=== PATIENT | female | born 1990 | race Caucasian/White ===

== ENCOUNTER 2023-11-17 19:46 | Emergency (ER) | payer OTHER, SELFPAY ==
[2023-11-17 19:48] VITALS: BP 143/83
[2023-11-17 20:13] VITALS: BMI 25.9
[2023-11-17 20:32] LABS: % Basophils 0.8 % (0-2); % Immature Granulocytes 0.5 % (0-0.5); % Monocytes 10.2 % (1.7-9.3); % Neutrophils 44.5 % (42.2-75.2); Absolute Basophils 0.1 10^3/uL (0-0.2); Absolute Eosinophils 0.2 10^3/uL (0-0.7); Absolute Lymphocytes 2.7 10^3/uL (1.2-3.4); Absolute Monocytes 0.7 10^3/uL (0.1-0.6); Absolute Neutrophils 2.9 10^3/uL (1.4-6.5); Hematocrit 35.9 % (37.0-47.0); Mean Corp Hgb Conc. 33.4 g/dL (33.0-37.0); Mean Corpuscular Hgb 30.2 pg (27.0-31.0); Mean Corpuscular Volume 90.4 fL (81.0-99.0); Mean Platelet Volume 9.2 fL (7.4-10.4); Nucleated Red Blood Cells % 0 %; Platelet Count 264 10^3/uL (130-400); Red Blood Cell Count 3.97 10^6/uL (4.20-5.40); Red Cell Dist. Width 12.3 % (11.5-14.5); White Blood Cell Count 6.6 10^3/uL (4.8-10.8)
[2023-11-17 20:50] LABS: ALT (SGPT) 22 U/L (0-35); AST (SGOT) 24 U/L (14-36); Albumin 4.6 g/dl (3.5-5.0); Alkaline Phosphatase 75 U/L (38-126); Blood Urea Nitrogen 5 mg/dl (7-17); Calcium 9.6 mg/dl (8.4-10.2); Carbon Dioxide 23 mmol/L (22-30); Chloride 104 mmol/L (98-107); Estimated Creatinine Clearance > 125 ml/min; Glucose 90 mg/dl (70-99); Potassium 3.4 mmol/L (3.5-5.1); Sodium 137 mmol/L (135-145); Total Bilirubin 0.8 mg/dl (0.2-1.3); Total Protein 7.2 g/dl (6.3-8.2); eGFR > 60.00
--- NOTE | 2023-11-17 20:55 | ED.GENMED ---
History of Present Illness
General
Chief Complaint: Breast Problem
Source: patient
Exam Limitations: none
Time Seen by Provider: 11/17/23 20:26
Nursing documentation reviewed up to this point in time: agreed with
Travel History
Have you had any contact with someone who has COVID-19?: No
Do you have any symptoms of coronavirus? Fever > 100 degrees, chills, cough, shortness of breath, sore throat, loss of taste or smell, muscle aches, or headache?: No
History of Present Illness
History of Present Illness:
The patient is a pleasant 33-year-old female who underwent a bilateral mastectomy (for increased risk of breast cancer) this past July. Patient reports that she then had expanders placed in her breast. The patient had the expanders removed and
implants placed almost 3 weeks ago. Patient reports she has been feeling well until today at around 11:00 AM, she had sudden onset of severe pain starting in her right breast and spreading across to her left breast area. Pain described it as a
severe cramping sensation felt inside her chest. Patient reports she is unable to make it hurt with movement or taking a deep breath. Patient surgery done was done at [facility]
Past History
Past History
ED Past Medical History: Asthma, Seizures and Other (eczema)
ED Past Surgical History: Other (wisdom teeth extraction, bilateral mastectomy with implants)
Social History
Tobacco: Former smoker
Alcohol: Daily
Drug: Marijuana
Personal: Single
Living: with family
Employment: Employed
Family History
Family History: Asthma
Review of Systems
Review of Systems
Allergies reviewed?: Yes
All Other Systems: ROS reviewed and negative except as documented in HPI and ROS
Constitutional: Reports no symptoms
EENT: Reports no symptoms
Respiratory: Reports no symptoms
Cardiac: Reports chest pain
ABD/GI: Reports no symptoms
: Reports no symptoms
Musculoskeletal: Reports no symptoms
Skin: Reports no symptoms
Neurological: Reports no symptoms
Endocrine: Reports no symptoms
Hematologic/Lymphatic: Reports no symptoms
Psychiatric: Reports no symptoms
Phy Exam
Physical Exam
Physical Exam:
Physical Exam
General: no apparent distress, not acutely ill. Well appearing
Neck: supple.
Heart: s1/s2 regular rate and rhythm, no murmur. equal radial pulses.
Lungs: no acute respiratory distress. clear bilaterally. No reproducible chest pain when taking a deep breath. Breast implants look well-positioned, bilateral incisions appear dry, intact without erythema or drainage.
No soft tissue tenderness of chest wall or breast
Abdomen: normal bowel sounds. not tender. no CVAT
Neuro: alert and oriented. no focal neurological deficits
Skin: no rash
Psychiatric: well kept. interactive and cooperative
Extremities: no edema. no calf tenderness. negative homans. good distal pulses
Course
Orders/Labs/Results
Orders:
Orders
11/17/23 20:19
CMP [Comprehensive Metabolic Panel] Urgent
HCG, Serum Qualitative Screen Urgent
Comment: ADD ON
11/17/23 20:25
Complete Blood Count/With Diff Urgent
11/17/23 20:54
CT Chest Pe Study Urgent
Comment:
Reason For Exam: bilateral breast pain, recent inplants
11/17/23 20:55
Add On- LAB Urgent
Tests Added?: serum beta HCG qualitative
Abnormal Lab Results
11/17/23 11/17/23
20:19 20:25
RBC 3.97 L 10^6/uL
(4.20-5.40)
Hct 35.9 L %
(37.0-47.0)
Absolute Monos (auto) 0.7 H 10^3/uL
(0.1-0.6)
Monocytes % 10.2 H %
(1.7-9.3)
Potassium 3.4 L mmol/L
(3.5-5.1)
BUN 5 L mg/dl
(7-17)
11/17/23 20:54
11/17/23 20:19
Vital Signs
Initial and Last Documented VS:
Initial Vital Signs
Temp Pulse Resp BP Pulse Ox
98.2 F 87 16 143/83 98
11/17/23 19:48 11/17/23 19:48 11/17/23 19:48 11/17/23 19:48 11/17/23 19:48
Last Documented Vital Signs
Temp Pulse Resp BP Pulse Ox
97.8 F 66 18 123/82 100
11/17/23 21:58 11/17/23 21:58 11/17/23 21:58 11/17/23 21:58 11/17/23 21:58
MDM/Problems Addressed
Differential Diagnosis Includes:
Rupture of breast implant, breast abscess, neuropathic pain from surgery and breast
MDM/Problems Addressed:
Patient presents with acute pain in bilateral breasts
Acute Exacerbation and/or Progression of Chronic Illness:
Patient is acutely hypertensive but only mildly and I suspect is from anxiety of being in the ED.
Acute Exacerbation and/or Progression of Chronic Illness: HTN
*Radiology
Radiology exam reviewed: radiology read reviewed
*Pulse Oximetry
Patient hypoxic: no
*EKG
Interpreted by ED Provider?: NA
*Regional Sales Coordinator Interpretation
Rate: Regional Sales Coordinator- N/A
*Critical Care Note
Total Time (30-74mins, 75-104mins- exclusive of procedures): Not Applicable
Data Reviewed
Source: patient
Patient Management
Social determinants of health affecting care: Living situation and Strong social support
Escalation/DeEscalation of care consider admission/obs:
There is no sign of breast erythema or drainage to suggest infection. There are no areas of significant breast tenderness to suggest abscess. CT shows good placement of breast implants. There is no sign of acute cardiac or pulmonary issues.
Patient's pain may be neuropathic in etiology.
ED Attending Note
-
Portions of this chart may have been created with voice recognition software.� Occasional wrong word or��sound alike� substitutions may have occurred due to the inherent limitations of voice recognition software.
Discharge Plan
Departure
Patient Disposition: Home (Routine Discharge)
Date of Disposition: 11/17/23
Time of Disposition: 22:36
Patient with high blood pressure during this ER visit?: No
Condition: Good
Covid-19: Not Applicable
Discharge Problem:
Post-operative pain
Instructions: Managing pain after surgery
Prescriptions:
No Action
oxycodone 5 mg tablet
5 mg PO Q4H PRN (Reason: Pain) Qty: 20 0RF
prednisone 20 mg tablet
20 mg PO BID Qty: 14 0RF
gabapentin 300 mg capsule
300 mg PO BID Qty: 14 0RF
Referrals:
Suman Shaffer MD [Family Provider] -
Interventions
Interventions:
*Risk Screen - Suicide Last Done: 11/17/23 19:48
*General Assessment Last Done: 11/17/23 19:48
*Neglect/Abuse Screening Last Done: 11/17/23 19:48
ED- Fall Risk Assessment Last Done: 11/17/23 20:41
*ED COVID-19 Vaccine History Last Done: 11/17/23 22:40
*Nursing Disposition Last Done: 11/17/23 22:40
ED-Skin Assessment Last Done: 11/17/23 20:40
Discharge Date and Time
Discharge Date/Time: 11/17/23 22:44
Print Language: ESTONIAN
[2023-11-17 21:15] LABS: HCG, Serum Qualitative Screen Negative
[2023-11-17 21:58] VITALS: BP 123/82
== END 2023-11-17 22:44 | disposition home or self-care (01) ==
LOC: EMR 19:46
PROVIDERS: EMERGENCY PHYSICIAN Emergency Medicine; FAMILY PHYSICIAN Internal Medicine
DX: G89.18 Other acute postprocedural pain (principal); R07.89 Other chest pain; J45.909 Unspecified asthma, uncomplicated; R56.9 Unspecified convulsions; Z87.891 Personal history of nicotine dependence; Z90.13 Acquired absence of bilateral breasts and nipples; Z88.8 Allergy status to other drugs, medicaments and biological substances; Z91.030 Bee allergy status; Z91.040 Latex allergy status
CPT/HCPCS: 99285; 71275; 80053; 84703; 85025; Q9967

== ENCOUNTER → 2024-01-07 15:26 | Outpatient (REF) | payer OTHER, SELFPAY | LOC: RAD 15:26 | PROVIDERS: ATTENDING PHYSICIAN Obstetrics & Gynecology; FAMILY PHYSICIAN Internal Medicine | DX: Z32.01 Encounter for pregnancy test, result positive (principal) | CPT/HCPCS: 76801 ==

== ENCOUNTER → 2024-06-01 08:56 | Outpatient (REF) | payer OTHER, SELFPAY | LOC: PNTC 08:56 | PROVIDERS: ATTENDING PHYSICIAN Obstetrics & Gynecology | DX: O24.419 Gestational diabetes mellitus in pregnancy, unspecified control (principal) | CPT/HCPCS: 76815 ==

== ENCOUNTER → 2024-06-07 12:58 | Outpatient (REF) | payer OTHER, SELFPAY ==
--- NOTE | 2024-06-07 13:19 | PN.DIAED06 ---
Meal Plan - Gestational
- Breakfast
Gestational Diabetes Meal Plan Name: 2000 calories
Breakfast - Total Carbohydrate (grams): 45
Breakfast - Starch Carbohydrate: 2
Breakfast - Fruit Carbohydrate: 0
Breakfast - Milk Carbohydrate: 1
Breakfast - Nonstarchy Vegetables: Yes
Breakfast - Meat/Protein: 1
Breakfast - Fat: 2
- Morning Snack
Morning Snack - Total Carbohydrate (grams): 30
Morning Snack - Starch Carbohydrate: 1
Morning Snack - Fruit Carbohydrate: 0
Morning Snack - Milk Carbohydrate: 1
Morning Snack - Nonstarchy Vegetables: Yes
Morning Snack - Meat/Protein: 0
Morning Snack - Fat: 0
- Lunch
Lunch - Total Carbohydrate (grams): 45
Lunch - Starch Carbohydrate: 1
Lunch - Fruit Carbohydrate: 1
Lunch - Milk Carbohydrate: 1
Lunch - Nonstarchy Vegetables: Yes
Lunch - Meat/Protein: 2
Lunch - Fat: 2
- Afternoon Snack
Afternoon Snack - Total Carbohydrate (grams): 30
Afternoon Snack - Starch Carbohydrate: 1
Afternoon Snack - Fruit Carbohydrate: 1
Afternoon Snack - Milk Carbohydrate: 0
Afternoon Snack - Nonstarchy Vegetables: Yes
Afternoon Snack - Meat/Protein: 1
Afternoon Snack - Fat: 0
- Dinner
Dinner - Total Carbohydrate (grams): 45
Dinner - Starch Carbohydrate: 2
Dinner - Fruit Carbohydrate: 1
Dinner - Milk Carbohydrate: 0
Dinner - Nonstarchy Vegetables: Yes
Dinner - Meat/Protein: 2
Dinner - Fat: 2
- Evening Snack
Evening Snack - Total Carbohydrate (grams): 45
Evening Snack - Starch Carbohydrate: 1
Evening Snack - Fruit Carbohydrate: 1
Evening Snack - Milk Carbohydrate: 1
Evening Snack - Nonstarchy Vegetables: Yes
Evening Snack - Meat/Protein: 1
Evening Snack - Fat: 0
--- NOTE | 2024-06-07 14:23 | PN.DE ---
Diabetes Education
- -
Maddie presented for medical nutrition therapy for gestational diabetes. She is currently 31 weeks with her 2nd child. She has a 10 year old son and did not have gestational diabetes during that . 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
[employer] and discussed her concerns regarding a hectic work schedule and difficult time taking a break or eating while working due to staffing issues. She has recently stopped checking post meal blood sugar checks due to this work
schedule.
I explained the importance of keeping blood glucose levels in control in order to help prevent complications to the baby during and post delivery. Maddie has knowledge of the risks for macrosomia and potential hypoglycemia after delivery. I
reviewed target blood glucose ranges fasting, less than 95 mg/dL and 120 mg/dL 2 hours post. She currently has a OneTouch meter and I reinforced the need to check fasting and 2 hours post meal. I suggested a continuous glucose sensor if she did not
have time to stop and re-check blood sugars during her work hours. She is waiting for her MD office to send the prescription for the Dexcom sensor. She is aware that she needs to send Goldie at [facility] her readings by this Wednesday.
I gave Maddie a 2,000 calorie gestational meal plan and reviewed it in detail. We discussed options for meals and snacks. Maddie does not cook as that is done by her significant other. I recommended she allocate time to buy and prepare
snacks/meals according to her meal plan that she can eat easily while at work. I also suggested she speak with her supervisor enrobing if needed to discuss the necessity of eating throughout the day and taking time to assess her glucose levels. Maddie was
encouraged to reach back out to the office if she needed further nutritinoal guidance or should she require insulin.
== END ==
LOC: DES 12:58
PROVIDERS: ATTENDING PHYSICIAN Obstetrics & Gynecology
DX: O24.419 Gestational diabetes mellitus in pregnancy, unspecified control (principal)
CPT/HCPCS: 99078

== ENCOUNTER 2024-08-01 08:10 | Inpatient (IN) | payer OTHER, SELFPAY ==
[2024-08-01 08:17] VITALS: BP 120/74; BMI 28.0
[2024-08-01 08:25] LABS: Glucose - Point of Care 103 mg/dl (70-99)
[2024-08-01] MEDS: LR 1000 IV ×2 (08:59→15:59)
[2024-08-01] MEDS: PITOCIN 30 UNITS/NSS 500 ML IV (08:59)
[2024-08-01 09:14] LABS: % Basophils 0.6 % (0-2); % Eosinophils 1.3 % (0-6); % Immature Granulocytes 0.7 % (0-0.5); % Lymphocytes 25.6 % (20.5-51.1); % Monocytes 8.7 % (1.7-9.3); % Neutrophils 63.1 % (42.2-75.2); Absolute Eosinophils 0.1 10^3/uL (0-0.7); Absolute Immature Granulocytes 0.1 10^3/uL (0-0.05); Absolute Lymphocytes 1.7 10^3/uL (1.2-3.4); Absolute Monocytes 0.6 10^3/uL (0.1-0.6); Absolute Neutrophils 4.2 10^3/uL (1.4-6.5); Hematocrit 34.3 % (37.0-47.0); Hemoglobin 11.3 g/dL (12.0-16.0); Mean Corp Hgb Conc. 32.9 g/dL (33.0-37.0); Mean Corpuscular Hgb 30.5 pg (27.0-31.0); Mean Corpuscular Volume 92.7 fL (81.0-99.0); Mean Platelet Volume 10.1 fL (7.4-10.4); Nucleated Red Blood Cells % 0 %; Platelet Count 224 10^3/uL (130-400); Red Cell Dist. Width 13.2 % (11.5-14.5); White Blood Cell Count 6.7 10^3/uL (4.8-10.8)
[2024-08-01] MEDS: STADOL 1 MG IV ×2 (14:41→15:40)
[2024-08-01 15:01] LABS: Glucose - Point of Care 87 mg/dl (70-99)
[2024-08-01] MEDS: SUBLIMAZE 100 MCG EPIDURAL (15:59)
[2024-08-01] MEDS: FENTANYL/BUPIVACAINE 100 EPIDURAL (16:00)
[2024-08-01 17:21] LABS: Glucose - Point of Care 101 mg/dl (70-99)
[2024-08-01 19:03] LABS: Glucose - Point of Care 126 mg/dl (70-99)
[2024-08-01 21:16] LABS: Glucose - Point of Care 98 mg/dl (70-99)
[2024-08-01 23:29] LABS: Glucose - Point of Care 98 mg/dl (70-99)
[2024-08-02] MEDS: TUMS CHEWABLE TABLET 400 MG PO (03:04)
[2024-08-02] MEDS: MOTRIN 600 MG PO ×3 (04:30→21:39)
[2024-08-02] MEDS: PRENATAL PLUS 1 TABLET PO (08:08)
[2024-08-02] MEDS: HYDROCORTISONE 2.5% OINTMENT 1 APPLIC TOPICAL (13:04)
[2024-08-02] MEDS: TYLENOL 650 MG PO ×2 (15:34→21:39)
[2024-08-02] MEDS: SENOKOT-S 1 TABLET PO (21:40)
[2024-08-03] MEDS: MOTRIN 600 MG PO ×2 (04:18→12:31)
[2024-08-03] MEDS: TYLENOL 650 MG PO ×2 (04:18→12:30)
[2024-08-03 05:23] LABS: Hemoglobin 8.8 g/dL (12.0-16.0)
[2024-08-03] MEDS: FEOSOL 325 MG PO (09:03)
[2024-08-03] MEDS: HYDROCORTISONE 2.5% OINTMENT 1 APPLIC TOPICAL (09:03)
[2024-08-03] MEDS: SENOKOT-S 1 TABLET PO (09:04)
[2024-08-03] MEDS: PRENATAL PLUS 1 TABLET PO (09:05)
[2024-08-04 17:47] LABS: Syphilis/T. pallidum Ab Reflex Negative (Negative)
== END 2024-08-03 13:25 | disposition home or self-care (01) | DRG 807 ==
LOC: LDRP 08:10
PROVIDERS: ADMITTING PHYSICIAN Obstetrics & Gynecology
PROC: 10907ZC Drainage of Amniotic Fluid, Therapeutic from Products of Conception, Via Natural or Artificial Opening (ICD-10-PCS; 2024-08-01)
PROC: 3E033VJ Introduction of Other Hormone into Peripheral Vein, Percutaneous Approach (ICD-10-PCS; 2024-08-01)
PROC: 10E0XZZ Delivery of Products of Conception, External Approach (ICD-10-PCS; 2024-08-02)
PROC: 0HQ9XZZ Repair Perineum Skin, External Approach (ICD-10-PCS; 2024-08-02)
DX: O24.424 Gestational diabetes mellitus in childbirth, insulin controlled (principal); Z37.0 Single live birth; O69.1XX0 Labor and delivery complicated by cord around neck, with compression, not applicable or unspecified; O70.0 First degree perineal laceration during delivery; Z3A.39 39 weeks gestation of pregnancy
CPT/HCPCS: 88307; 82962; 85014; 85018; 85025; 86780; 86850; 86900; 86901